=== PATIENT | female | born 1960 | race Caucasian/White ===

== ENCOUNTER 2017-08-27 14:06 | Emergency (ER) | payer OTHER ==
[~2017-08-27] VITALS: Ht 165.1 cm; Wt 61.0 kg
[~2017-08-27 14:06] MED LIST: ALBU1AER INH; ALBU6.7H INH; AMOX500T PO; OMEP20TA PO; PRED10 PO
[2017-08-27 14:10] VITALS: BP 121/57; PULSE 96; RESP 16; TEMP 98.2; O2SAT 95
[2017-08-27] MEDS ORDERED: OMEP20TA93 PO (14:21)
[2017-08-27] MEDS ORDERED: ALBUAER3 INH (14:21)
[2017-08-27] MEDS ORDERED: LAMI250T PO (14:47)
[2017-08-27] MEDS ORDERED: VIST50CA PO (14:47)
[2017-08-27] MEDS ORDERED: CEPH-460 PO (14:47)
--- NOTE | 2017-08-27 14:47 | PD ---
HPI . Itching of the right ear canal Chief Complaint: ENT Complaint Time Seen by Provider: 14:24 Travel History International Travel<30 days: No Contact w/Intl Traveler<30days: No Traveled to known affect area: No History of Present Illness HPI Patient presents with the chief complaint of a rash on her left foot. She states that this been there for about 3 months. She states that she has used [id number]-[id number] antifungal with temporary relief but then the rash recurs. She now has a similar rash in her right ear canal. It started about 4 days ago. She states it is very pruritic and has been draining some clear fluid. PFSH Past Medical History Hx Anticoagulant Therapy: No Arthritis: Yes Asthma: Yes GERD: Yes Musculoskeletal: Yes (FX L3-4) Respiratory: Yes (ASTHMA) Immunizations Current: Yes Tetanus Vaccination: < 5 Years Influenza Vaccination: Yes ?: Not Menopausal: Yes Social History Alcohol Use: Yes (RARE) Tobacco Use: Yes (1 PPD) Substance Use: No Allergies-Medications (Allergen,Severity, Reaction): Coded Allergies: aspirin (Unverified Adverse Reaction, Unknown, Nausea/Vomiting, 08/27/17) Reported Meds & Prescriptions Reported Meds & Active Scripts Active Reported Omeprazole 20 Mg Tab 20 Mg PO BID Proair Hfa 8.5 GM Inh (Albuterol Sulfate) 90 Mcg/Act Aer 1 Puff INH Q4H PRN 108 mcg/actuation Review of Systems Except as stated in HPI: all other systems reviewed are Neg General / Constitutional: No: Fever, Chills HENT: Positive: Ear Discharge, Other (rash in her ear canal) Skin: Positive Rash, Positive Itching Physical Exam Narrative GENERAL: Awake and alert and in no acute distress. SKIN: Warm and dry. She has a reddened, scaly rash on the dorsal aspect of the left foot at the base of the fourth and fifth toes. HEAD: Normocephalic/atraumatic. EYES: Pupils are equal. Extraocular movements are intact. ENT: Rash at the introital is of the right EAC which appears vesicular and which is draining yellow fluid. The surrounding skin is scaly and erythematous. NECK: Normal range of motion. No cervical lymphadenopathy. CARDIOVASCULAR: Regular rate and rhythm. RESPIRATORY: Nonlabored respirations. MUSCULOSKELETAL: Atraumatic. NEUROLOGICAL: Nonfocal. PSYCHIATRIC: Appropriate mood and affect. Data Data Last Documented VS Vital Signs Date Time Temp Pulse Resp B/P (MAP) Pulse Ox O2 Delivery O2 Flow Rate FiO2 08/27/17 14:10 98.2 96 16 121/57 (78) 95 MDM Medical Decision Making Medical Screen Exam Complete: Yes Emergency Medical Condition: Yes Differential Diagnosis The differential diagnosis of the skin rash includes but is not limited to allergic urticaria, scabies, insect bites, contact dermatitis Narrative Course This patient presents with a rash on her left foot which is been present for 3 months. It has been unresponsive to isrn-urr-nsaotvm antifungal such as Lotrimin. She now has a similar rash at the introitus of the right EAC. The center of the rash on the right ear looks like impetigo. She will be discharged to home with prescriptions for Lamisil, Keflex and Atarax. She reports difficulty obtaining a primary care physician because no one is accepting new patients. I will suggest that she follow up at the [facility] clinic. Diagnosis Primary Impression: Tinea pedis of left foot Additional Impressions: tinea right ear canal Impetigo Referrals: [facility] you will need to see someone during the course of your treatment to have your liver checked Patient Instructions: General Instructions, Impetigo (DC), Tinea Corporis (DC) , Tinea Pedis (DC) Med/Other Pt SpecificInfo: Prescription(s) given Scripts Hydroxyzine Pamoate (Vistaril) 50 Mg Cap 50 MG PO QID Y for itching, #90 CAP 0 Refills Prov: Brooke Moses MD 08/27/17 Cephalexin (Keflex) 500 Mg Cap 500 MG PO Q8H for Infection, #30 CAP 0 Refills Prov: Brooke Moses MD 08/27/17 Terbinafine (Lamisil) 250 Mg Tab 250 MG PO DAILY for Manage Fungal Infection for 90 Days, #90 TAB 0 Refills Prov: Brooke Moses MD 08/27/17 Disposition: 01 DISCHARGE HOME Condition: Stable Brooke Moses MD Aug 27, 2017 14:47
== END 2017-08-27 15:27 | disposition home or self-care (01) ==
LOC: PHEFT 14:06
DX: B35.3 Tinea pedis (principal); B35.4 Tinea corporis; L01.00 Impetigo, unspecified; M19.90 Unspecified osteoarthritis, unspecified site; J45.909 Unspecified asthma, uncomplicated; K21.9 Gastro-esophageal reflux disease without esophagitis; F17.210 Nicotine dependence, cigarettes, uncomplicated
CPT/HCPCS: 99284